=== PATIENT | female | born 1935 | race Caucasian/White ===

== ENCOUNTER 2020-08-20 19:51 | Emergency (ER) | payer MEDICARE ==
[~2020-08-20] VITALS: Ht 160 cm; Wt 66.0 kg
[~2020-08-20 19:51] MED LIST: ASPI-496 PO; LISI-170 PO
--- NOTE | 2020-08-20 20:19 | NUR ---
PT. IS A & O X 4 WITH A GCS OF 15. PT. PRESENTS TO THE ED WITH C/O SUDDEN ONSET LEFT SHOULDER PAIN THAT RADIATES DOWN HER LEFT ARM. NO TRAUMA. ONSET WAS APPROXIMATELY 1330 TODAY. PT. HAS NO HX OF PA OR STROKE AND DENIES C/O CP, SOB, DIZZINESS OR DIAPHORESIS. PT. IS NEGATIVE FOR STROKE S/S. PT. IS AMBULATORY WITH A STEADY GAIT TO ROOM 4. PT. WAS PLACED ON THE CP MONITOR AND A 12 LEAD EKG HAS BEEN DONE. PT. HAS NO ST ELEVATION NOTED AND IS IN A SINUS RHYTHM AT THIS TIME. REPORT WAS GIVEN TO THE PRIMARY CARE RN. SIDERAILS ARE UP X 2 WITH THE CALL LIGHT IN PLACE. THE HOB IS ELEVATED GREATER THAN 30 DEGREES. ABIMAEL ARRIAGA IS AT THE BEDSIDE.
[2020-08-20] MEDS ORDERED: HYDR25TA6 PO (20:23)
[2020-08-20] MEDS ORDERED: AMLODIPINE PO (20:23)
[2020-08-20] MEDS ORDERED: ONDANSETRON 2MG/ML, 2ML IVPush ONE (20:30)
[2020-08-20] MEDS ORDERED: MORPHINE SULFATE 4 MG/ML, 1ML IVPush PRN (20:30)
[2020-08-20] MEDS ORDERED: ONDANSETRON 2MG/ML, 2ML ONE (20:35)
[2020-08-20] MEDS ORDERED: MORPHINE SULFATE 4 MG/ML, 1ML ONE (20:36)
[2020-08-20 20:45] LABS: BASOPHILS % (AUTO) 0 % (0-1); EOSINOPHILS % (AUTO) 2 % (1-7); LYMPHOCYTES % (AUTO) 34 % (22-44); MEAN CORPUSCULAR HEMOGLOBIN 31.5 pg (27.0-34.8); MEAN PLATELET VOLUME 9.1 fL (7.4-10.4); MONOCYTES % (AUTO) 7 % (2-9); NEUTROPHILS % (AUTO) 58 % (42-75); PLATELET COUNT 312 x10^3/uL (130-400); RED BLOOD COUNT 3.97 x10^6/uL (3.82-5.3); RED CELL DISTRIBUTION WIDTH 12.9 % (9.6-15.2)
[2020-08-20 20:46] LABS: MD NO
[2020-08-20 20:52] LABS: ALBUMIN 3.9 g/dL (3.4-5.0); ANION GAP 7 mmol/L (5-15); CALCIUM 9.1 mg/dL (8.5-10.1); CHLORIDE 108 mmol/L (98-107); CREATININE 1.02 mg/dL (0.55-1.02)
[2020-08-20 20:56] LABS: TROPONIN I < 0.015 ng/mL (0.000-0.045)
--- NOTE | 2020-08-20 20:57 | NUR ---
PT REPORTS COMING INTO ED TONIGHT FOR LEFT SHOULDER PAIN THAT BEGAN YESTERDAY, PT HAS DECREASED RANGE OF MOTION AND REPORTS 8/10 PAIN, NO TRAUMA, CMS INTACT, PULSES 2+, DENIES N/V OR CP. SON AT BS WITH PT. PT RESTING ON GURNEY, NAD, BED IN LOWEST, RAILS ENGAGED, CALL LIGHT ON LAP. PT MEDICATED PER SEP FOR PAIN, LABS SENT. PT PLACED ON SPO2/BP/ECG MONITORING, PROVIDED WARM BLANKETS FOR COMFORT, WCTM. WAITING FOR RAD AND LABS RESULTS.
[2020-08-20] MEDS ORDERED: FAMOTIDINE 20 MG/2 ML ONE (21:35)
--- NOTE | 2020-08-20 21:39 | NUR ---
PT RESTING ON GURNURY, STATES "MY STOMACH IS HURTING REALLY BAD RIGHT THERE" POINTING TO EPIGASTRIC REGION. ERP NATALIE AWARE. PT MEDICATED PER MAR FOR DISCOMFORT. PT SON AT BS. BED IN [place], RAILS ENGAGED, CALL LIGHT ON LAP. WCTM.
[2020-08-20] MEDS ORDERED: FAMOTIDINE 20 MG/2 ML IVPush ONE (22:00)
[2020-08-20] MEDS ORDERED: ACETAMINOPHEN 500 MG TABLET ONE (22:13)
[2020-08-20] MEDS ORDERED: MAALOX/HYOSCYAMINE/LIDOCAINE 45 ML BTL ONE (22:13)
--- NOTE | 2020-08-20 22:26 | NUR ---
pt medicated per mar, ambulated to and from restroom with a smooth and steady gait. nad, denies additional needs, medicated per mar, wctm. son at , pt provided ice for comfort.
[2020-08-20] MEDS ORDERED: ACETAMINOPHEN 500 MG TABLET PO ONE (22:30)
[2020-08-20] MEDS ORDERED: MAALOX/HYOSCYAMINE/LIDOCAINE 45 ML BTL PO ONE (22:30)
[2020-08-20 22:45] VITALS: BP 110/50
--- NOTE | 2020-08-20 22:48 | NUR ---
pt resting on alexander, nad, states that she feels a lot better now, denies additional needs, bed in lowest, call light on lap, rails engaged, son at , [facility].
--- NOTE | 2020-08-20 23:34 | NUR ---
Patient/son given discharge instructions and they have confirmed that they understand the instructions. Patient ambulatory with steady gait. nad, instructed on sling, denies additional questions or needs at this time, no personal belongings left in room after dc.
== END 2020-08-20 23:36 | disposition home or self-care (01) ==
LOC: ED 20:21
DX: M25.512 Pain in left shoulder (principal); R07.89 Other chest pain; I10 Essential (primary) hypertension
CPT/HCPCS: 36415; 71045; 73030; 80048; 82040; 83880; 84484; 85025; 93005; 96374; 96375; 99285; J2270; J2405